=== PATIENT | male | born 1975 | race African-American/Black ===

== ENCOUNTER 2017-04-10 05:29 | Emergency (ER) | payer OTHER ==
[~2017-04-10] VITALS: Ht 188 cm; Wt 94.0 kg
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
[~2017-04-10 05:29] MED LIST: FLEXERIL10 MG PO; INDOMETHACIN25 MG PO; NAPROXEN PO; ROBAXIN 750750 M1 PO
== END 2017-04-10 07:21 | disposition home or self-care (01) ==
LOC: SED 05:29
DX: S06.0X0A Concussion without loss of consciousness, initial encounter (principal); S01.01XA Laceration without foreign body of scalp, initial encounter; S01.81XA Laceration without foreign body of other part of head, initial encounter; S21.211A Laceration without foreign body of right back wall of thorax without penetration into thoracic cavity, initial encounter; F17.210 Nicotine dependence, cigarettes, uncomplicated; Y08.89XA Assault by other specified means, initial encounter
CPT/HCPCS: 12001; 12011; 70450; 99284